=== PATIENT | male | born 1990 | race Caucasian/White ===

== ENCOUNTER 2016-11-06 14:38 | Emergency (ER) | payer OTHER ==
[2016-11-06] MEDS ORDERED: LIDOCAINE HCL 20 ML VIAL ONE (14:45)
--- NOTE | 2016-11-06 14:54 | ERNOTE ---
ENT HPI Presenting Symptoms: other Time Seen by Provider: 11/06/16 14:40 Source: patient Exam Limitations: no limitations - History of Present Illness Narrative: Patient was mowing the lawn by the hospital when he felt an insect fly into his right ear. He can feel it move. No other injuries or concerns Date (Duration): 11/06/16 Review of Systems - Review of Systems Constitutional: Absent: recent illness, fever ENT: Present: See HPI Respiratory: Absent: shortness of breath, cough Cardiology: Absent: chest pain Gastrointestinal/Abdominal: Absent: nausea, abdominal pain Genitourinary: Present: no symptoms reported Skin: Absent: rash Neurological: Absent: headache - Patient's Past Medical History Patient History - Medical: No pertinent hx Patient History - Cardiac/Respiratory: No pertinent hx Patient History - Cancer: No Hx of Cancer Patient History - Surgical Procedures: No surgical history - Social History Have you smoked in the past 12 months: No Alcohol Use: none Drug Use: none - Immunizations Immunizations Up to Date: Yes Physical Exam - Physical Exam General Appearance: Present: wd/wn, alert, no apparent distress Eye Exam: Normal inspection: bilateral Ears, Nose, Throat: Present: normal ENT inspection, other - large beetle in right ear, after removal normal ear and ear canal Respiratory: Present: no respiratory distress Neurological Exam: Present: alert, oriented, normal mood/affect Skin Exam: Present: normal color, warm/dry ED Progress - Vital Signs Patient's Vital Signs:: I have reviewed the patient's vital signs. Procedures How removed: Forceps Complications: Pt lauren procedure well Comments: 1ml of lidocaine dripped into ear, large beetle removed with forceps Departure Clinical Impression: Foreign body in right ear Qualifiers: Encounter type: initial encounter Qualified Code(s): T16.1XXA - Foreign body in right ear, initial encounter - Departure Disposition: Home self-care Condition: Good Instructions: Ear Foreign Body, [id number] Additional Instructions: wear ear protection when you mow Referrals: Sky Cain MD [Staff Physician] -
[2016-11-06 14:59] VITALS: BP 135/84
--- OUTSIDE RECORDS SUMMARY | 2016-11-06 15:03 | XMS REPORT | Continuity of Care Document ---
:1990 Author Organization [facility] [place] [address] Care Team Providers Name Role Phone Unavailable Primary Care Provider Unavailable Source Comments This disclosure is being made pursuant to the [employer] program and maynot contain all information available regarding this patient.[facility] Active Allergies and Adverse Reactions Not on File Current Medications Be aware that medications may not be up to date as of this document. Alwaysverify current medications with the patient. Not on file Active Problems Not on file Social History Tobacco Use Types Packs/Day Years Used Date Never Assessed Plan of Care Health Maintenance Due Date Last Done Comments HPV Vaccine (F:[id number],M: 9-22) (1 of 3 - Male 3 Dose 2003 Series) Retired-Tetanus Vaccine Adult 2011 Retired-INFLUENZA VACCINE 12/28/2014 Results from Last 3 Months Not on file
== END 2016-11-06 14:56 | disposition home or self-care (01) ==
LOC: ER 14:38
PROC: 09C0XZZ Extirpation of Matter from Right External Ear, External Approach (ICD-10-PCS; principal; 2016-11-06)
DX: T16.1XXA Foreign body in right ear, initial encounter (principal); Y93.H2 Activity, gardening and landscaping; Y99.0 Civilian activity done for income or pay; Y92.238 Other place in hospital as the place of occurrence of the external cause